=== PATIENT | female | born 1985 | race Caucasian/White ===

== ENCOUNTER → 2019-06-10 | Outpatient (CLI) | payer MEDICAID ==
[2019-06-10 17:29] LABS: Basophils % (A) 0 %; Eosinophils # (A) 0.1 k/uL (0-0.7); Eosinophils % (A) 1 %; HCT 39.9 % (34.0-46.0); HGB 13.1 gm/dL (11.4-16.0); Lymphocytes # (A) 2.1 k/uL (1.0-4.8); Lymphocytes % (A) 26 %; MCH 29.8 pg (25.0-35.0); MCHC 32.8 g/dL (31.0-37.0); MCV 90.9 fL (80.0-100.0); Mean Platelet Volume 6.3; Monocytes # (A) 0.5 k/uL (0-1.0); Monocytes % (A) 6 %; Neutrophils # (A) 5.2 k/uL (1.3-7.7); Neutrophils % (A) 65 %; Platelet Count 313 k/uL (150-450); RBC 4.39 m/uL (3.80-5.40); RDW 12.1 % (11.5-15.5)
[2019-06-10 17:33] LABS: INR 0.9 (<1.2); Prothrombin Time 10.2 sec (9.0-12.0)
[2019-06-11 00:11] LABS: African American GFR (CKD) 113.9 (60.0-200.0); Albumin 4.5 g/dL (3.80-4.90); Albumin/Globulin Ratio 2.14 (1.60-3.17); Calcium 9.2 mg/dL (8.7-10.3); Globulin 2.1 g/dL (1.6-3.3); Non-African American GFR(CKD) 98.2 (60.0-200.0); Potassium 4.2 mmol/L (3.5-5.5); Total Bilirubin 0.3 mg/dL (0.2-1.2); Total Protein 6.6 g/dL (6.2-8.2)
== END | disposition home or self-care (01) ==
LOC: LABWHC1 16:53
PROVIDERS: ATTEND Physician Assistant Medical
DX: F41.9 Anxiety disorder, unspecified (principal); G43.009 Migraine without aura, not intractable, without status migrainosus; K06.9 Disorder of gingiva and edentulous alveolar ridge, unspecified
CPT/HCPCS: 36415; 80053; 84443; 85025; 85610

== ENCOUNTER → 2022-10-02 | Outpatient (CLI) | payer MEDICAID ==
--- NOTE | 2022-10-02 11:41 | XR ---
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 Psoas margins are normal. No organomegaly is present. There is calcification overlying the left iliac crest measuring 1.0 cm. Multiple phleboliths within t he pelvis. IMPRESSION: 1. Distal left ureteral stone at the pelvic inlet may be present measuring 1.0 cm in length.
== END | disposition home or self-care (01) ==
LOC: RADXRMAIN 11:13
PROVIDERS: ATTEND Urology
DX: N20.2 Calculus of kidney with calculus of ureter (principal)
CPT/HCPCS: 74018

== ENCOUNTER 2022-10-03 14:29 | Day surgery (SDC) | payer MEDICAID ==
[~2022-10-03 14:29] MED LIST: DEXAMETHASONE SOD PHOSPHATE 4 MG/ML 1 ML VIAL IV ONE; LACTATED RINGERS 1,000 ML IV SCH; LIDOCAINE 1% (10MG/ML) FOR IV START INTRADERMA PRN; ONDANSETRON 4 MG/2 ML VIAL IVP ONE
[2022-10-03 14:51] VITALS: RESP 16
[2022-10-03] MEDS ORDERED: SCOPOLAMINE 1 MG/72 HR PATCH TRANSDERM ONE (15:06)
[2022-10-03] MEDS ORDERED: METOCLOPRAMIDE 5 MG/ML 2 ML VIAL ONE (15:12)
[2022-10-03] MEDS ORDERED: MIDAZOLAM 2 MG/2 ML VIAL IVP ONE (15:16)
[2022-10-03] MEDS ORDERED: METOCLOPRAMIDE 5 MG/ML 2 ML VIAL IVP ONE (15:16)
[2022-10-03] MEDS ORDERED: PROPOFOL 10 MG/ML 20 ML VIAL IV ONE (15:48)
[2022-10-03] MEDS ORDERED: fentaNYL (PF) 50 MCG/ML 2 ML AMP ONE (15:48)
[2022-10-03] MEDS ORDERED: LIDOCAINE 2% INJ 20 MG/ML (2 ML VIAL) ONE (15:48)
[2022-10-03] MEDS ORDERED: ePHEDrine 50 MG/ML 1 ML VIAL ONE (15:48)
--- NOTE | 2022-10-03 15:48 | P.HPIHPCON ---
History of Present Illness H&P Date: 10/03/22 Chief Complaint: left ureteral stone this is a 36 yo female with hx of 10 mm left sided ureteral stone. She is symptomatic from her stone. Option of left-sided ureteroscopy with holmium laser versus ESWL was discussed with her in detail. Risk and benefit of each approach was discussed. She agreed to proceed with left-sided ureteroscopy with holmium laser. Risk of bleeding, infection, ureteral perforation was discussed Consent for Procedure: I have explained the operation/procedure to the patient, including the risks, benefits, side effects, alternative therapies (including not receiving the proposed treatment or service), the likelihood of the patient achieving his/her goals, and potential recuperation problems for the procedure/sedation/analgesia, as well as any blood products, if indicated. I also explained to the patient the risks, benefits and side effects of the alternatives, as well as the risks related to not receiving the proposed procedure, care, treatment, or services. Past Medical History Past Medical History: No Reported History History of Any Multi-Drug Resistant Organisms: None Reported Past Surgical History: No Surgical Hx Reported Past Anesthesia/Blood Transfusion Reactions: No Reported Reaction Past Psychological History: Depression Smoking Status: Never smoker Past Alcohol Use History: None Reported Past Drug Use History: None Reported Medications and Allergies Home Medications Medication Instructions Recorded Confirmed Type Citalopram Hydrobromide [CeleXA] 30 mg PO DAILY 10/03/22 10/03/22 History Allergies Allergy/AdvReac Type Severity Reaction Status Date / Time No Known Allergies Allergy Verified 10/03/22 14:48 Surgical - Exam Vital Signs Temp Pulse Resp BP Pulse Ox 98 F 76 16 133/71 97 10/03/22 14:50 10/03/22 14:50 10/03/22 14:50 10/03/22 14:50 10/03/22 14:50 - General no distress, moderate pain - Eyes normal ocular movement, no pale - ENT normal nares, normal mucosa - Respiratory normal expansion, normal respiratory effort Assessment and Plan Assessment: OR for left-sided ureteroscopy, holmium laser lithotripsy, stone basketing and possible stent insertion
[2022-10-03] MEDS ORDERED: IOPAMIDOL-370 100ML BTL MISCELLANE ONE (16:26)
[2022-10-03 16:46] VITALS: TEMP 97.2
--- NOTE | 2022-10-03 16:53 | P.OP ---
Date of Procedure: 10/03/22 Preoperative Diagnosis: left ureteral stone Postoperative Diagnosis: Same Procedure(s) Performed: Cystoscopy, left ureteroscopy, retrograde pyelogram Implants: none Anesthesia: JUAREZA Surgeon: Carlton Babin Estimated Blood Loss (ml): 0 Pathology: none sent Condition: stable Disposition: PACU Indications for Procedure: this is a 36 yo female with hx of 10 mm left sided ureteral stone. She is symptomatic from her stone. Option of left-sided ureteroscopy with holmium laser versus ESWL was discussed with her in detail. Risk and benefit of each approach was discussed. She agreed to proceed with left-sided ureteroscopy with holmium laser. Risk of bleeding, infection, ureteral perforation was discussed Operative Findings: No stones visualized, radiopaque density seen on KUB was lateral to the ureter Description of Procedure: Patient brought to the operating room, general anesthesia was induced. She was prepped and draped in sterile fashion and placed in a dorsal lithotomy position. Cystoscopy fitted with 21-[place] sheath was inserted per urethra, cystoscopy was performed which showed no abnormality within the bladder. At this time a semirigid ureteroscope was inserted per urethra and advanced up the left ureteral orifice, ureteroscope was advanced all the way up to the proximal ureter which showed no evidence of stone. Pullback ureteroscopy was performed showed no injury to the ureter or any ureteral stones as the ureteroscope was withdrawn and a sensor wire was advanced through. Of note the entire ureter was slightly dilated At this time decision was made to proceed with a renoscopy to evaluate for possible that the stone has migrated into the kidney. The flexible ureteroscope was backloaded over the wire was advanced up to the kidney, complete renoscopy was performed which showed no stones within the kidney, retrograde pyelogram was performed through the ureteroscope to ensure all the calyces were evaluated. On retrograde pyelogram there was no filling defects and all calyces were evaluated. Pullback ureteroscopy was performed which showed no filling defect or injury to the ureter. On ureteroscopy the radiopaque density seen on KUB that was lateral to the ureter. At this time, there was no edema or injury to the ureter thus a stent was not placed. The bladder was emptied and into the case. Patient tolerated the procedure well was taken to recovery in stable condition
[2022-10-03 17:42] VITALS: BP 105/56; PULSE 76
--- NOTE | 2022-10-03 19:48 | FL ---
EXAMINATION TYPE: FL urography retrograde DATE OF EXAM: 10/03/2022 COMPARISON: NONE HISTORY: Left ureteroscopy and retrograde pyelogram TECHNIQUE: Fluoroscopy. FINDINGS: Fluoroscopic guidance was provided during procedure performed by Dr. Babin. A total of 2 2 seconds of fluoroscopic time was utilized during the procedure and 2 spot images was acquired. Tot al DAP [id number]. IMPRESSION: As Above.
[2022-10-04] MEDS ORDERED: HYDROmorphone 0.5 MG/0.5 ML SYRINGE IVP PRN (07:00)
== END 2022-10-03 17:49 | disposition home or self-care (01) ==
LOC: OR 14:29
PROVIDERS: ATTEND Urology
DX: N20.1 Calculus of ureter (principal); F32.A Depression, unspecified; F41.9 Anxiety disorder, unspecified; Z79.899 Other long term (current) drug therapy
CPT/HCPCS: 81025; 74420; 52351; C1769; J2250; J1100; J2765; J0690; J2405; J3010; J2704; Q9967; J2001

== ENCOUNTER → 2022-10-03 | Outpatient (CLI) | payer MEDICAID ==
[2022-10-03 08:40] LABS: HCT 43.1 % (34.0-46.0); HGB 13.7 gm/dL (11.4-16.0); MCH 29.2 pg (25.0-35.0); MCHC 31.9 g/dL (31.0-37.0); MCV 91.7 fL (80.0-100.0); Platelet Count 350 k/uL (150-450); RDW 12.8 % (11.5-15.5); WBC 5.3 k/uL (3.8-10.6)
[2022-10-03 08:45] LABS: African American GFR (CKD) >90 (>60 ml/min/1.73 sqM); Anion Gap 3 mmol/L; Blood Urea Nitrogen 6 mg/dL (7-17); Calcium 8.9 mg/dL (8.4-10.2); Carbon Dioxide 30 mmol/L (22-30); Chloride 106 mmol/L (98-107); Glucose 97 mg/dL (74-99); Non-African American GFR(CKD) >90 (>60 ml/min/1.73 sqM); Potassium 4.2 mmol/L (3.5-5.1); Sodium 139 mmol/L (137-145)
== END | disposition home or self-care (01) ==
LOC: LABWHC1 07:51
PROVIDERS: ATTEND Urology
DX: N20.1 Calculus of ureter (principal)
CPT/HCPCS: 36415; 80048; 85027

== ENCOUNTER → 2023-03-17 | Outpatient (CLI) | payer MEDICAID ==
--- NOTE | 2023-03-17 12:13 | XR ---
EXAMINATION TYPE: XR KUB DATE OF EXAM: 03/17/2023 HISTORY: Pain Comparison: 10/02/22 Single KUB is submitted for interpretation. Findings: Right renal calculi: None Visualized. Right ureteral calculi: None Visualized. Left renal calculi: None Visualized. Left ureteral calculi: None Visualized. Pelvic calcifications: Multiple phleboliths redemonstrated. Bowel gas pattern is unremarkable. No free air. No mass effects. IMPRESSION: 1. Kidneys are limited by overlying bowel content. No definitive radiopaque calcific density seen at this time. Multiple pelvic phleboliths are stable.
== END | disposition home or self-care (01) ==
LOC: RADXRMAIN 11:21
PROVIDERS: ATTEND Urology
DX: N20.0 Calculus of kidney (principal); I87.8 Other specified disorders of veins
CPT/HCPCS: 74018

== ENCOUNTER → 2024-04-12 | Outpatient (CLI) | payer MEDICAID ==
--- NOTE | 2024-04-12 12:30 | XR ---
EXAMINATION TYPE: XR KUB DATE OF EXAM: 04/12/2024 HISTORY: Pain Comparison: None.Single KUB is submitted for interpretation. Findings: Right renal calculi: None Visualized. Right ureteral calculi: None Visualized. Left renal calculi: None Visualized. Left ureteral calculi: None Visualized. Pelvic calcifications: Multiple Bowel gas pattern is unremarkable. No free air. No mass effects. IMPRESSION: 1. No visible renal calculi [facility], , 04/12/2024 12:28 PM
== END | disposition home or self-care (01) ==
LOC: RADXRMAIN 12:06
PROVIDERS: ATTEND Urology
DX: N20.1 Calculus of ureter (principal)
CPT/HCPCS: 74018